=== PATIENT | male | born 1975 | race Two or more races ===

== ENCOUNTER 2023-05-08 08:29 | Emergency (ER) | payer OTHER ==
[2023-05-08] MEDS ORDERED: Sodium Chloride 0.9% 10 ML Syringe FLUSH PRN (08:53)
[2023-05-08 09:02] LABS: BASOPHILS ABSOLUTE AUTO 0.07 10^3/uL (0.00-0.10); BASOPHILS PERCENT AUTO 0.8 % (0.0-1.0); EOSINOPHILS ABSOLUTE AUTO 0.29 10^3/uL (0.10-0.30); EOSINOPHILS PERCENT AUTO 3.4 % (1.0-3.0); HEMATOCRIT 47.9 % (40.0-52.0); HEMOGLOBIN 16.4 g/dL (13.0-17.0); IMMATURE GRAN ABSOLUTE AUTO 0.03 10^3/uL (0.00-0.50); IMMATURE GRAN PERCENT AUTO 0.4 % (0.0-5.0); LYMPHOCYTES ABSOLUTE AUTO 2.31 10^3/uL (1.00-4.00); LYMPHOCYTES PERCENT AUTO 27.2 % (20.0-40.0); MEAN CORPUSCULAR HEMOGLOBIN 31.1 pg (27.0-31.0); MEAN CORPUSCULAR HGB CONC 34.2 g/dL (32.0-36.0); MEAN CORPUSCULAR VOLUME 90.7 fL (82.0-92.0); MEAN PLATELET VOLUME 9.9 fL (7.4-10.4); MONOCYTES ABSOLUTE AUTO 0.51 10^3/uL (0.10-0.80); NEUTROPHILS ABSOLUTE AUTO 5.27 10^3/uL (2.50-7.00); NEUTROPHILS PERCENT AUTO 62.2 % (50.0-70.0); PLATELET COUNT,PLT 254 10^3/uL (150-400); RED BLOOD CELL COUNT 5.28 10^6/uL (4.50-6.00); WHITE BLOOD CELL COUNT,WBC 8.48 10^3/uL (5.00-10.00)
[2023-05-08 09:35] LABS: APPEARANCE,URINE CLEAR (CLEAR); BILIRUBIN,URINE NEGATIVE (NEGATIVE); COLOR,URINE YELLOW (YELLOW); GLUCOSE,URINE 500 mg/dL (NEGATIVE); KETONES,URINE NEGATIVE (NEGATIVE); LEUKOCYTE ESTERASE,URINE NEGATIVE (NEGATIVE); NITRITE,URINE NEGATIVE (NEGATIVE); OCCULT BLOOD,URINE TRACE-INTACT (NEGATIVE); PROTEIN,URINE 100 mg/dL (NEGATIVE); UROBILINOGEN,URINE 0.2 E.U./dL (0.2-1.0)
[2023-05-08 09:36] LABS: BACTERIA,URINE RARE /HPF (NONE TO FEW); EPITHELIAL CELLS,URINE RARE /LPF; MUCUS,URINE FEW /LPF (NEGATIVE); RBC,URINE 0-5 /HPF (0-5); WBC,URINE 0-5 /HPF (0-5)
[2023-05-08 09:41] LABS: ALBUMIN 3.89 g/dL (3.40-5.00); ANION GAP 13.8 mmol/L (5-15); BILIRUBIN TOTAL 0.3 mg/dL (0.2-1.0); CALCIUM 8.8 mg/dL (8.7-10.3); CREATININE 0.69 mg/dL (0.51-1.17); EST CRCL DRUG DOSING (CG) 117.91 mL/min; POTASSIUM,K 3.8 mmol/L (3.5-5.1); PROTEIN TOTAL,TP 7.4 g/dL (6.4-8.2)
[2023-05-08] MEDS: Metoprolol Tartrate 5 MG/5 ML SDV IVPUSH ONE (10:00)
[2023-05-08] MEDS ORDERED: Lisinopril 5 MG Tab PO ONE (10:29)
[2023-05-08] MEDS: Lisinopril 20 MG Tab PO ONE (10:34)
== END 2023-05-08 11:45 | disposition home or self-care (01) ==
LOC: KA.ED 08:29
DX: M25.511 Pain in right shoulder (principal); R81 Glycosuria; Z04.1 Encounter for examination and observation following transport accident; E11.9 Type 2 diabetes mellitus without complications; I10 Essential (primary) hypertension; Z87.891 Personal history of nicotine dependence
CPT/HCPCS: 36415; 71045; 73030-RT; 80053; 81001; 85025; 99283; 99284; A9270-GY; J3490; Q3014